=== PATIENT | female | born 1980 | race Caucasian/White ===

== ENCOUNTER 2018-07-05 10:44 | Emergency (ER) | payer OTHER ==
[~2018-07-05] VITALS: Ht 162.6 cm; Wt 72.6 kg
== END 2018-07-05 16:50 | disposition home or self-care (01) ==
LOC: ER 10:44
DX: M25.562 Pain in left knee (principal)

== ENCOUNTER 2018-11-14 00:10 | Emergency (ER) | payer OTHER ==
[~2018-11-14] VITALS: Ht 162.6 cm; Wt 70.3 kg
[2018-11-14] MEDS ORDERED: IBUPROFEN800 MG PO (03:22)
[2018-11-14] MEDS ORDERED: AMOX-CLAV 875-1 EACH PO (03:22)
== END 2018-11-14 03:26 | disposition home or self-care (01) ==
LOC: ER 00:10
DX: K02.9 Dental caries, unspecified (principal)

== ENCOUNTER 2024-07-13 09:28 | Emergency (ER) | payer OTHER ==
[~2024-07-13] VITALS: Ht 162.6 cm; Wt 74.4 kg
[~2024-07-13 09:28] MED LIST: AMOX-CLAV 875-1 EACH PO; IBUPROFEN800 MG PO
[2024-07-13 09:57] VITALS: BP 128/88; O2SAT 100
[2024-07-13 10:33] LABS: PH,URINE 5.5 (5.0-8.0); URINE APPEARANCE Cloudy; URINE BILIRRUBIN Negative (NEGATIVE); URINE BLOOD Trace; URINE COLOR Yellow; URINE GLUCOSE Negative (NEGATIVE); URINE KETONE Negative (NEGATIVE); URINE LEUKOCYTE Large; URINE NITRATE Positive; URINE PROTEIN Negative (NEGATIVE); URINE UROBILINOGEN 0.2 E.U./dl
[2024-07-13 10:37] LABS: URINE WBC 1719.8 uL (0.0-23.2)
[2024-07-13 10:40] LABS: URINE BACTERIA > 9821.5 uL (0.0-1933); URINE CAST 0.58 uL (0.0-1.40)
[2024-07-13] MEDS ORDERED: CEFTRIAXONE SODIUM 1,000 MG VIAL IM STA (10:42)
[2024-07-13] MEDS ORDERED: CEFTRIAXONE SODIUM 1,000 MG VIAL ONE (11:01)
== END 2024-07-13 11:11 | disposition home or self-care (01) ==
LOC: ER 09:28
PROVIDERS: General Practice
DX: N39.0 Urinary tract infection, site not specified (principal)

== ENCOUNTER 2025-01-06 15:40 | Inpatient (IN) | payer OTHER ==
[~2025-01-06] VITALS: Ht 162.6 cm; Wt 72.6 kg
--- NOTE | 2025-01-06 16:45 | NUR ---
PTE ALERTA Y ORIENTADA X3 REIFERE FIEBRE, DOLOR EN TODO EL CUPERO, DOLOR DE MINE, FALTA DE PATETITO Y MALESTAR ESTOMACAL. SE MIDEN S/V Y SE UBICA.
[2025-01-06] MEDS ORDERED: FAMOtidine 10 MG/ML (4ML VIAL) IV PUSH STA (17:12)
[2025-01-06 18:05] LABS: BASO % 0.2 % (0.1-1.2); EOS # 0.08 (0.04-0.54); EOS % 0.5 % (0.7-7.0); LYMPH # 1.93 (1.18-3.74); LYMPH % 12.2 % (19.3-53.1); MEAN PLATELET VOLUME 12.40 fl (9.4-12.4); MONO # 2.03 (0.24-0.82); NEUT # 11.67 (1.56-6.13); NEUT % 73.7 % (34.0-71.1); RED CELL DISTRIBUTION WIDTH 12.6 % (11.6-14.4)
[2025-01-06 18:12] LABS: MONO % 12.8 % (4.7-12.5)
--- NOTE | 2025-01-06 18:13 | NUR ---
SE ORIENTA PTE SOBRE TX MEDICO Y EL MISMO REFIERE ENTENDER Y ACEPTAR. SE COLECTAN MUESTRAS DE LAB Y SE ADMINSITRA MED DAX ORDEN MEDICA. PTE NO PRESENTA REACCION.
[2025-01-06 18:23] LABS: URINE APPEARANCE Clear; URINE BILIRRUBIN Negative (NEGATIVE); URINE BLOOD Small; URINE COLOR Yellow; URINE GLUCOSE Negative (NEGATIVE); URINE KETONE Negative (NEGATIVE); URINE LEUKOCYTE Moderate; URINE NITRATE Positive; URINE PROTEIN 30 (NEGATIVE); URINE UROBILINOGEN 1.0 E.U./dl
[2025-01-06 18:24] LABS: URINE EPITHELIAL CELLS 9.9 uL (0.0-38.8); URINE RBC 17.1 uL (0.0-20.8); URINE WBC 576.0 uL (0.0-23.2)
[2025-01-06 18:26] LABS: ALT/SGPT 58.0 U/L (12-78); AST/SGOT 32.0 U/L (15-37); BILIRUBIN TOTAL 0.89 mg/dL (0.3-1.2); BUN CREA RATIO 9.0 (7.0-25.0); CREATININE SERUM 0.79 mg/dL (0.55-1.02); GFR 79.06; GLOBULINA 3.7 G/DL (2.4-3.5); GLUCOSE FASTING 94.0 mg/dL (65-100); OSMOLALITY SERUM 279.0 MOSM/KG (275-295)
--- NOTE | 2025-01-06 18:33 | NUR ---
SE ADMINISTRAN 2 TYLENOL 500MG.
[2025-01-06 18:35] LABS: COVID-19 AG NEGATIVE (NEGATIVE)
[2025-01-06 18:38] LABS: URINE BACTERIA > 9821.5 uL (0.0-1933); URINE CAST 0.00 uL (0.0-1.40)
[2025-01-06] MEDS ORDERED: levoFLOXacin IN DEXTROSE 5 % 5 MG/ML PIGGYBAG IV STA (18:45)
[2025-01-06] MEDS ORDERED: ACETAMINOPHEN 500 MG GEL..CAP PO PRN (21:30)
[2025-01-06] MEDS ORDERED: 0.9 % SODIUM CHLORIDE 1,000 ML IV SCH (21:30)
[2025-01-06] MEDS ORDERED: ONDANSETRON HCL 4 MG in 0.9 % SODIUM CHLORIDE 50 ML IV PRN (21:45)
[2025-01-06] MEDS ORDERED: KETOROLAC TROMETHAMINE 15 MG VIAL IU ONE (21:45)
[2025-01-07 02:20] LABS: INR 1.05
[2025-01-07 04:33] VITALS: BP 109/67; O2SAT 98
[2025-01-07 08:00] VITALS: BP 113/77; O2SAT 97
[2025-01-07] MEDS ORDERED: CEFTRIAXONE SODIUM 2,000 MG in 0.9 % SODIUM CHLORIDE 100 ML IV SCH (09:00)
[2025-01-07] MEDS ORDERED: FAMOTIDINE/PF 20 MG in 0.9 % SODIUM CHLORIDE 8 ML IV PUSH SCH (09:00)
[2025-01-07 16:30] VITALS: BP 117/80; O2SAT 97
[2025-01-07] MEDS ORDERED: LACTOBACILLUS ACIDOPHILUS 1 CAP CAP PO SCH (17:00)
[2025-01-08 00:35] VITALS: BP 110/71; O2SAT 100
[2025-01-08 07:31] LABS: BASO % 0.4 % (0.1-1.2); EOS # 0.18 (0.04-0.54); EOS % 1.9 % (0.7-7.0); LYMPH # 2.20 (1.18-3.74); LYMPH % 22.6 % (19.3-53.1); MEAN PLATELET VOLUME 12.60 fl (9.4-12.4); MONO # 1.20 (0.24-0.82); NEUT # 6.06 (1.56-6.13); NEUT % 62.4 % (34.0-71.1); RED CELL DISTRIBUTION WIDTH 12.5 % (11.6-14.4)
[2025-01-08 07:38] LABS: MONO % 12.3 % (4.7-12.5)
[2025-01-08 07:58] LABS: BUN CREA RATIO 13.0 (7.0-25.0); CREATININE SERUM 0.6 mg/dL (0.55-1.02); GFR 108.6; GLUCOSE FASTING 90.0 mg/dL (65-100); OSMOLALITY SERUM 281.0 MOSM/KG (275-295)
[2025-01-08 09:00] VITALS: BP 124/84; O2SAT 97
== END 2025-01-08 16:06 | disposition home or self-care (01) | DRG 872 ==
LOC: ER 15:56 → SEC-K 21:34 → SURG 01-07 01:02
PROVIDERS: General Practice; ADMIT Internal Medicine; ATTEND Internal Medicine
PROC: BW21ZZZ Computerized Tomography (CT Scan) of Abdomen and Pelvis (ICD-10-PCS; principal; 2025-01-06)
DX: A41.9 Sepsis, unspecified organism (principal); N39.0 Urinary tract infection, site not specified; R65.10 Systemic inflammatory response syndrome (SIRS) of non-infectious origin without acute organ dysfunction